=== PATIENT | female | born 1945 | race Caucasian/White ===

== ENCOUNTER 2016-09-08 08:16 | Outpatient (CLI) | payer MEDICARE ==
[2016-09-08 09:50] LABS: Anion Gap 17 mmol/L (10-20); BUN (Urea Nitrogen) 40 mg/dL (9.8-20.1); Calc. Creatinine Clearance 0 mL/min (70-130); Calcium 9.2 mg/dL (7.8-10.44); Carbon Dioxide 25 mmol/L (23-31); Chloride 106 mmol/L (98-107); Estimated GFR-MDRD 22
[2016-09-08 17:38] LABS: Phosphorus 3.9 mg/dL (2.3-4.7)
== END 2016-09-08 08:17 | disposition home or self-care (01) ==
LOC: BURLAB 08:16
PROVIDERS: ATTEND Internal Medicine Nephrology
DX: N18.4 Chronic kidney disease, stage 4 (severe) (principal)
CPT/HCPCS: 36415; 80048; 83970; 84100; 84165; 84166; 86038; 86256; 86803

== ENCOUNTER 2016-10-25 15:04 | Emergency (ER) | payer MEDICARE ==
[2016-10-25 15:42] LABS: Eosinophils 2 % (0-10); Hemoglobin 12.1 g/dL (12.0-16.0); Lymphocytes 49 % (21-51); MDiff Complete? YES; Mean Corpuscular HGB CONC 33.9 g/dL (32.0-36.0); Mean Corpuscular Hemoglobin 31.6 pg (27.0-31.0); Mean Platelet Volume 9.1 fL (7.4-10.4); Monocytes 9 % (0-10); Neutrophil 40 % (42-75); Platelet Count 189 thou/uL (130-400); RBC Distribution Width 11.6 % (11.5-14.5); Red Blood Cell (RBC) Count 3.84 mill/uL (4.20-5.40); White Blood Cell (WBC) Count 7.5 thou/uL (4.8-10.8)
[2016-10-25 15:51] LABS: CKMB 1.6 ng/mL (0-6.6); Troponin I Less than 0.010 ng/mL (< 0.028)
[2016-10-25 15:54] LABS: ALT (SGPT) 9 U/L (0-55); AST (SGOT) 17 U/L (5-34); Albumin 3.9 g/dL (3.4-4.8); Alkaline Phosphatase 70 U/L (40-150); Anion Gap 15 mmol/L (10-20); BUN (Urea Nitrogen) 32 mg/dL (9.8-20.1); Bilirubin, Total 0.4 mg/dL (0.2-1.2); Calc. Creatinine Clearance 0 mL/min (70-130); Calcium 9.2 mg/dL (7.8-10.44); Carbon Dioxide 21 mmol/L (23-31); Chloride 110 mmol/L (98-107); Estimated GFR-MDRD 26; Globulin 3.7 g/dL (2.4-3.5); Glucose 178 mg/dL (80-115); Potassium 4.6 mmol/L (3.5-5.1); Protein, Total 7.6 g/dL (5.8-8.1); Sodium 141 mmol/L (136-145)
[2016-10-25 18:24] LABS: CKMB 1.5 ng/mL (0-6.6)
--- NOTE | 2016-10-25 19:08 | RAD ---
CHEST TWO VIEWS: 10/25/16 Comparison is made with the 01/16/14 chest x-ray. I also reviewed the report of a CT of the thorax don e earlier. The heart size is stable and is upper normal at most. Dense calcification is seen in the aortic arch. Median sternotomy sutures are seen from prior surgery. There is no acute infiltrate or effusion. Mild elevation of the right hemidiaphragm is no different than usual. There were a few vag ue densities in the right mid lung zone that I believe are just overlapping markings rather than act ual nodules. If clinical symptoms were worrisome, one could followup with an elective CT to remove a ll doubts about smaller pathology in the chest. IMPRESSION: No definite acute finding. POS: HOME
== END 2016-10-25 18:55 | disposition home or self-care (01) ==
LOC: BURERS 15:04
DX: M54.6 Pain in thoracic spine (principal); E11.9 Type 2 diabetes mellitus without complications; E78.5 Hyperlipidemia, unspecified; E78.00 Pure hypercholesterolemia, unspecified; I10 Essential (primary) hypertension; F41.9 Anxiety disorder, unspecified; Z79.82 Long term (current) use of aspirin; Z79.899 Other long term (current) drug therapy
CPT/HCPCS: 36415; 71020; 80053; 82553; 84484; 85025; 93005

== ENCOUNTER 2017-11-15 01:30 | Emergency (ER) | payer MEDICARE ==
[2017-11-15 01:56] LABS: #Basophils 0.1 thou/uL (0.0-0.2); #Lymphocytes 1.2 thou/uL (1.20-3.40); #Monocytes 0.5 thou/uL (0.11-0.59); #Neutrophils 11.4 thou/uL (1.40-6.50); %Basophils 0.4 % (0.0-1.0); %Eosinophils 0.2 % (0.0-10.0); %Lymphocytes 8.7 % (21.0-51.0); %Monocytes 3.7 % (0.0-10.0); Hemoglobin 10.9 g/dL (12.0-16.0); Mean Corpuscular HGB CONC 34.9 g/dL (32.0-36.0); Mean Corpuscular Hemoglobin 29.8 pg (27.0-31.0); Mean Corpuscular Volume 85.6 fl (81.0-99.0); Mean Platelet Volume 7.3 fL (7.4-10.4); Platelet Count 286 thou/uL (130-400); RBC Distribution Width 12.4 % (11.5-14.5); Red Blood Cell (RBC) Count 3.64 mill/uL (4.20-5.40); White Blood Cell (WBC) Count 13.1 thou/uL (4.8-10.8)
[2017-11-15 02:13] LABS: ALT (SGPT) 14 U/L (8-55); AST (SGOT) 17 U/L (5-34); Albumin 4.4 g/dL (3.4-4.8); Alkaline Phosphatase 55 U/L (40-150); Anion Gap 22 mmol/L (10-20); BUN (Urea Nitrogen) 81 mg/dL (9.8-20.1); Bilirubin, Total 0.5 mg/dL (0.2-1.2); Calc. Creatinine Clearance 0 mL/min (70-130); Calcium 9.5 mg/dL (7.8-10.44); Carbon Dioxide 25 mmol/L (23-31); Chloride 97 mmol/L (98-107); Estimated GFR-MDRD 14; Globulin 3.9 g/dL (2.4-3.5); Glucose 332 mg/dL (83-110); Potassium 3.9 mmol/L (3.5-5.1); Protein, Total 8.3 g/dL (6.0-8.3); Sodium 140 mmol/L (136-145)
[2017-11-15 02:14] LABS: CKMB 1.3 ng/mL (0-6.6)
--- NOTE | 2017-11-15 07:04 | RAD ---
AP PORTABLE CHEST: 11/15/2017 0133 hours COMPARISON: Study from [facility] on 10/19/2017. FINDINGS: The heart is normal in size today. Median sternotomy sutures are noted from prior surgery. The lungs are clearer today than before, and there are no pleural effusions. There is no definite congestive change, though the vessels would be easier to assess with a deeper degree of inspiration, as what is shown is fairly shallow. IMPRESSION: No definite acute findings. The appearance of the chest is improved with respect to last month. POS: HOME
== END 2017-11-15 02:32 | disposition home or self-care (01) ==
LOC: BURERS 01:30
DX: I13.0 Hypertensive heart and chronic kidney disease with heart failure and stage 1 through stage 4 chronic kidney disease, or unspecified chronic kidney disease (principal); I50.9 Heart failure, unspecified; E11.22 Type 2 diabetes mellitus with diabetic chronic kidney disease; N18.9 Chronic kidney disease, unspecified; R07.2 Precordial pain; E78.5 Hyperlipidemia, unspecified; F41.9 Anxiety disorder, unspecified; Z79.02 Long term (current) use of antithrombotics/antiplatelets; Z79.899 Other long term (current) drug therapy; Z79.82 Long term (current) use of aspirin
CPT/HCPCS: 71045; 80053; 82553; 83880; 84484; 85025; 93005

== ENCOUNTER 2019-06-12 23:15 | Emergency (ER) | payer MEDICARE | END 2019-06-12 23:45 | disposition home or self-care (01) | LOC: BURERS 23:15 | DX: L29.9 Pruritus, unspecified (principal); E11.9 Type 2 diabetes mellitus without complications; E78.5 Hyperlipidemia, unspecified; E78.00 Pure hypercholesterolemia, unspecified; F41.9 Anxiety disorder, unspecified; I11.0 Hypertensive heart disease with heart failure; I50.9 Heart failure, unspecified | CPT/HCPCS: 99282 ==

== ENCOUNTER 2020-05-23 19:00 | Emergency (ER) | payer MEDICARE ==
[2020-05-23 19:32] LABS: #Basophils 0.2 thou/uL (0.0-0.2); #Eosinphils 0.2 thou/uL (0.0-0.7); #Lymphocytes 1.5 thou/uL (1.20-3.40); #Monocytes 0.5 thou/uL (0.11-0.59); #Neutrophils 6.1 thou/uL (1.40-6.50); %Basophils 1.8 % (0.0-1.0); %Eosinophils 2.9 % (0.0-10.0); %Lymphocytes 17.6 % (21.0-51.0); %Monocytes 6.3 % (0.0-10.0); %Neutrophils 71.4 % (42.0-75.0); Hemoglobin 11.1 g/dL (12.0-16.0); Mean Corpuscular HGB CONC 32.5 g/dL (32.0-36.0); Mean Corpuscular Hemoglobin 31.6 pg (27.0-31.0); Mean Corpuscular Volume 97.1 fL (78.0-98.0); Mean Platelet Volume 8.2 fL (7.4-10.4); Platelet Count 205 thou/uL (130-400); RBC Distribution Width 13.2 % (11.5-14.5); Red Blood Cell (RBC) Count 3.53 mill/uL (4.20-5.40); White Blood Cell (WBC) Count 8.6 thou/uL (4.8-10.8)
[2020-05-23 19:49] LABS: ALT (SGPT) Less than 7 U/L (8-55); Albumin 3.7 g/dL (3.4-4.8); Alkaline Phosphatase 62 U/L (40-110); Anion Gap 22 mmol/L (10-20); BUN (Urea Nitrogen) 42 mg/dL (9.8-20.1); Bilirubin, Total 0.6 mg/dL (0.2-1.2); Calc. Creatinine Clearance 0 mL/min (70-130); Calcium 8.7 mg/dL (7.8-10.44); Carbon Dioxide 12 mmol/L (23-31); Chloride 113 mmol/L (98-107); Estimated GFR-MDRD 15; Globulin 3.3 g/dL (2.4-3.5); Glucose 91 mg/dL (83-110); Potassium 5.5 mmol/L (3.5-5.1); Sodium 141 mmol/L (136-145)
[2020-05-23 19:56] LABS: AST (SGOT) 19 U/L (5-34)
[2020-05-23 20:06] LABS: CKMB 2.1 ng/mL (0-6.6)
--- NOTE | 2020-05-23 20:25 | RAD ---
PORTABLE CHEST: Date: 05-23-2020 An AP portable film at 1922 is compared with a 11-15-17 study. FINDINGS: A small right pleural effusion is present of uncertain etiology, however, the vessels may be very mil dly congested. Elevation of the right hemidiaphragm is typical in this patient. No lobar or focal inf iltrates were seen. The haziness at the cardiac apex is felt to be a fat pad. The heart is not enlarg ed. Prior cardiac surgery is noted. IMPRESSION: Small right pleural effusion. Possible slight vascular congestion. POS: HOME
[2020-05-23] MEDS ORDERED: Aspirin Chewable 81 MG TAB ONE (20:46)
[2020-05-23] MEDS ORDERED: Furosemide 100 MG/10 ML VIAL ONE (20:46)
[2020-05-23] MEDS ORDERED: Nitroglycerin 2% Ointment 1 INCH/1 GM Packet ONE (20:46)
[2020-05-23] MEDS ORDERED: Nitroglycerin 50 MG/250 ML BOT 250 ML ONE (21:35)
[2020-05-23 23:17] LABS: CKMB 1.9 ng/mL (0-6.6)
[2020-05-24] MEDS ORDERED: Nitroglycerin 2% Ointment 1 INCH/1 GM Packet ONE (02:53)
[2020-05-24 05:17] LABS: CKMB 1.8 ng/mL (0-6.6)
== END 2020-05-24 07:11 | disposition short-term general hospital (02) ==
LOC: BURERS 19:00
DX: I11.0 Hypertensive heart disease with heart failure (principal); I50.9 Heart failure, unspecified; N19 Unspecified kidney failure; J90 Pleural effusion, not elsewhere classified; R77.8 Other specified abnormalities of plasma proteins; E11.9 Type 2 diabetes mellitus without complications; E78.5 Hyperlipidemia, unspecified; F41.9 Anxiety disorder, unspecified; Z79.82 Long term (current) use of aspirin; Z79.899 Other long term (current) drug therapy
CPT/HCPCS: 36415; 71045; 80053; 82553; 83880; 84484; 85025; 93005; 94760; 96365; 96366; 96375; J1940

== ENCOUNTER 2021-03-15 09:00 | Emergency (ER) | payer MEDICARE | END 2021-03-15 09:22 | disposition home or self-care (01) | LOC: BURERS 09:00 | DX: M10.9 Gout, unspecified (principal); E11.9 Type 2 diabetes mellitus without complications; E78.5 Hyperlipidemia, unspecified; E78.00 Pure hypercholesterolemia, unspecified; I11.0 Hypertensive heart disease with heart failure; I50.9 Heart failure, unspecified; Z79.82 Long term (current) use of aspirin; Z79.02 Long term (current) use of antithrombotics/antiplatelets; Z79.899 Other long term (current) drug therapy | CPT/HCPCS: 99283 ==

== ENCOUNTER 2021-12-19 19:14 | Emergency (ER) | payer MEDICARE ==
[2021-12-19] MEDS ORDERED: Labetalol HCl 100 MG/20 ML VIAL ONE (20:40)
[2021-12-19 20:45] LABS: #Basophils 0.1 thou/uL (0.0-0.2); #Eosinphils 0.2 thou/uL (0.0-0.7); #Lymphocytes 1.8 thou/uL (1.20-3.40); #Monocytes 0.5 thou/uL (0.11-0.59); #Neutrophils 5.2 thou/uL (1.40-6.50); %Basophils 1.2 % (0.0-1.0); %Eosinophils 2.6 % (0.0-10.0); %Lymphocytes 23.5 % (21.0-51.0); %Monocytes 6.3 % (0.0-10.0); %Neutrophils 66.5 % (42.0-75.0); Hemoglobin 11.8 g/dL (12.0-16.0); Mean Corpuscular HGB CONC 32.7 g/dL (32.0-36.0); Mean Corpuscular Hemoglobin 29.9 pg (27.0-31.0); Mean Corpuscular Volume 91.5 fL (78.0-98.0); Mean Platelet Volume 7.9 fL (7.4-10.4); Platelet Count 181 thou/uL (130-400); RBC Distribution Width 14.3 % (11.5-14.5); Red Blood Cell (RBC) Count 3.93 mill/uL (4.20-5.40); White Blood Cell (WBC) Count 7.8 thou/uL (4.8-10.8)
[2021-12-19 20:56] LABS: ALT (SGPT) 8 U/L (8-55); AST (SGOT) 15 U/L (5-34); Albumin 3.6 g/dL (3.4-4.8); Alkaline Phosphatase 50 U/L (40-110); Anion Gap 18 mmol/L (10-20); BUN (Urea Nitrogen) 56 mg/dL (9.8-20.1); Bilirubin, Total 0.7 mg/dL (0.2-1.2); Calc. Creatinine Clearance 0 mL/min (70-130); Carbon Dioxide 21 mmol/L (23-31); Chloride 108 mmol/L (98-107); Globulin 3.3 g/dL (2.4-3.5); Glucose 111 mg/dL (83-110); Potassium 4.9 mmol/L (3.5-5.1); Protein, Total 6.9 g/dL (5.8-8.1); Sodium 142 mmol/L (136-145)
== END 2021-12-19 22:01 | disposition home or self-care (01) ==
LOC: BURERS 19:14
DX: I11.0 Hypertensive heart disease with heart failure (principal); I50.9 Heart failure, unspecified; E11.9 Type 2 diabetes mellitus without complications; E78.5 Hyperlipidemia, unspecified; E78.00 Pure hypercholesterolemia, unspecified
CPT/HCPCS: 80053; 83880; 84484; 85025; 93005; 96374

== ENCOUNTER 2022-03-14 14:57 | Emergency (ER) | payer MEDICARE ==
[2022-03-14] MEDS ORDERED: Nitroglycerin 0.4 MG TAB 1 EACH ONE ×2 (15:20→16:45)
[2022-03-14] MEDS ORDERED: Aspirin Chewable 81 MG TAB ONE (15:20)
[2022-03-14 15:21] LABS: #Basophils 0.1 thou/uL (0.0-0.2); #Eosinphils 0.2 thou/uL (0.0-0.7); #Lymphocytes 2.2 thou/uL (1.20-3.40); #Monocytes 0.5 thou/uL (0.11-0.59); #Neutrophils 5.6 thou/uL (1.40-6.50); %Basophils 1.4 % (0.0-1.0); %Eosinophils 1.8 % (0.0-10.0); %Lymphocytes 25.4 % (21.0-51.0); %Monocytes 6.1 % (0.0-10.0); %Neutrophils 65.2 % (42.0-75.0); Hemoglobin 11.4 g/dL (12.0-16.0); Mean Corpuscular HGB CONC 32.6 g/dL (32.0-36.0); Mean Corpuscular Hemoglobin 31.1 pg (27.0-31.0); Mean Corpuscular Volume 95.4 fL (78.0-98.0); Mean Platelet Volume 7.2 fL (7.4-10.4); Platelet Count 209 thou/uL (130-400); RBC Distribution Width 13.4 % (11.5-14.5); Red Blood Cell (RBC) Count 3.65 mill/uL (4.20-5.40); White Blood Cell (WBC) Count 8.6 thou/uL (4.8-10.8)
[2022-03-14 15:30] LABS: PTT 29.6 sec (22.9-36.1); Prothrombin Time 13.3 sec (12.0-14.7)
[2022-03-14 15:38] LABS: ALT (SGPT) 9 U/L (8-55); AST (SGOT) 13 U/L (5-34); Alkaline Phosphatase 56 U/L (40-110); Anion Gap 15 mmol/L (10-20); BUN (Urea Nitrogen) 52 mg/dL (9.8-20.1); Bilirubin, Total 0.4 mg/dL (0.2-1.2); Calc. Creatinine Clearance 0 mL/min (70-130); Calcium 9.4 mg/dL (7.8-10.44); Carbon Dioxide 20 mmol/L (23-31); Chloride 112 mmol/L (98-107); Estimated GFR 12; Globulin 3.5 g/dL (2.4-3.5); Glucose 165 mg/dL (83-110); Potassium 4.6 mmol/L (3.5-5.1); Protein, Total 7.5 g/dL (5.8-8.1); Sodium 142 mmol/L (136-145)
[2022-03-14] MEDS ORDERED: Enoxaparin Sodium 100 MG/ML SYRINGE ONE (15:53)
[2022-03-14] MEDS ORDERED: Nitroglycerin 2% Ointment 1 INCH/1 GM Packet ONE (15:53)
[2022-03-14] MEDS ORDERED: hydrALAZINE 20 MG/ML VIAL ONE ×2 (15:54→17:52)
== END 2022-03-14 18:00 | disposition short-term general hospital (02) ==
LOC: BURERS 14:57
DX: I21.4 Non-ST elevation (NSTEMI) myocardial infarction (principal); E11.22 Type 2 diabetes mellitus with diabetic chronic kidney disease; I13.0 Hypertensive heart and chronic kidney disease with heart failure and stage 1 through stage 4 chronic kidney disease, or unspecified chronic kidney disease; N18.9 Chronic kidney disease, unspecified; I50.9 Heart failure, unspecified; E78.00 Pure hypercholesterolemia, unspecified
CPT/HCPCS: 71045; 80053; 82553; 83880; 84484; 85025; 85610; 85730; 93005; 94760; 96372; 96374; 96376; J0360; J1650

== ENCOUNTER 2022-03-26 14:25 | Emergency (ER) | payer MEDICARE ==
[2022-03-26 14:53] LABS: #Basophils 0.2 thou/uL (0.0-0.2); #Eosinphils 0.2 thou/uL (0.0-0.7); #Lymphocytes 1.7 thou/uL (1.20-3.40); #Monocytes 0.7 thou/uL (0.11-0.59); #Neutrophils 7.1 thou/uL (1.40-6.50); %Basophils 1.6 % (0.0-1.0); %Eosinophils 2.3 % (0.0-10.0); %Monocytes 6.8 % (0.0-10.0); %Neutrophils 72.4 % (42.0-75.0); Hemoglobin 10.7 g/dL (12.0-16.0); Mean Corpuscular HGB CONC 33.7 g/dL (32.0-36.0); Mean Corpuscular Hemoglobin 32.2 pg (27.0-31.0); Mean Corpuscular Volume 95.5 fL (78.0-98.0); Mean Platelet Volume 7.1 fL (7.4-10.4); Platelet Count 217 thou/uL (130-400); RBC Distribution Width 12.9 % (11.5-14.5); Red Blood Cell (RBC) Count 3.31 mill/uL (4.20-5.40); White Blood Cell (WBC) Count 9.8 thou/uL (4.8-10.8)
[2022-03-26] MEDS ORDERED: hydrALAZINE 20 MG/ML VIAL ONE ×2 (14:55→16:59)
[2022-03-26 15:08] LABS: ALT (SGPT) 11 U/L (8-55); AST (SGOT) 19 U/L (5-34); Albumin 3.9 g/dL (3.4-4.8); Alkaline Phosphatase 51 U/L (40-110); Anion Gap 18 mmol/L (10-20); BUN (Urea Nitrogen) 64 mg/dL (9.8-20.1); Bilirubin, Total 0.5 mg/dL (0.2-1.2); CK (CPK) 55 U/L (29-168); Calc. Creatinine Clearance 0 mL/min (70-130); Calcium 9.2 mg/dL (7.8-10.44); Carbon Dioxide 17 mmol/L (23-31); Chloride 111 mmol/L (98-107); Estimated GFR 12; Globulin 3.6 g/dL (2.4-3.5); Glucose 114 mg/dL (83-110); Magnesium 1.6 mg/dL (1.6-2.6); Potassium 5.4 mmol/L (3.5-5.1); Protein, Total 7.5 g/dL (5.8-8.1); Sodium 141 mmol/L (136-145)
[2022-03-26 15:09] LABS: CKMB 1.4 ng/mL (0-6.6)
[2022-03-26 16:54] LABS: Troponin I 0.029 ng/mL (< 0.028)
[2022-03-26] MEDS ORDERED: Furosemide 40 MG TAB ONE (16:59)
[2022-03-26] MEDS ORDERED: Acetaminophen 500 MG TAB ONE (16:59)
== END 2022-03-26 17:37 | disposition home or self-care (01) ==
LOC: BURERS 14:25
DX: I13.0 Hypertensive heart and chronic kidney disease with heart failure and stage 1 through stage 4 chronic kidney disease, or unspecified chronic kidney disease (principal); E11.22 Type 2 diabetes mellitus with diabetic chronic kidney disease; N18.9 Chronic kidney disease, unspecified; I50.9 Heart failure, unspecified; J90 Pleural effusion, not elsewhere classified; I25.2 Old myocardial infarction
CPT/HCPCS: 36415; 71045; 80053; 82550; 82553; 83735; 84484; 85025; 96374; 96376; J0360